=== PATIENT | male | born 1975 ===

== ENCOUNTER 2021-05-29 11:56 | Emergency (ER) | payer SELFPAY ==
[~2021-05-29] VITALS: Ht 180.3 cm; Wt 126.8 kg
[2021-05-29 11:56] VITALS: BP 133/81
== END 2021-05-29 13:05 | disposition left against medical advice (07) ==
LOC: M ED 11:56
DX: Z53.21 Procedure and treatment not carried out due to patient leaving prior to being seen by health care provider (principal)